=== PATIENT | female | born 1980 | race Hispanic/Latino ===

== ENCOUNTER 2017-09-29 20:28 | Emergency (ER) | payer OTHER ==
--- OUTSIDE RECORDS SUMMARY | 2017-09-29 20:30 | XMS REPORT | Clinical Summary ---
Author Author [facility] Organization [facility] Address Unknown Phone Unavailable Care Team Providers Care Fee Clerk Name Role Phone Aidan Gonzalez MD PCP Allergies No Known Allergies Current Medications No known medications Active Problems Problem Noted Date Bleeding from anus 05/04/2016 Constipation 05/04/2016 Internal hemorrhoids 05/04/2016 Social History Tobacco Use Types Packs/Day Years Used Date Never Smoker Sex Assigned at Date Recorded Not on file Last Filed Vital Signs Not on file Plan of Treatment Health Maintenance Due Date Last Done Comments PAP SMEAR 2000 INFLUENZA VACCINE 01/23/2018 Results Not on fileafter 09/28/2016 Insurance Payer Benefit Subscriber ID Type Phone Address Plan / Group CIG[employer] CIGNA OPEN xxxxxxxxxxx HMO ACCESS/NET WORK
== END 2017-09-29 20:41 | disposition short-term general hospital (02) ==
LOC: ER 20:28
DX: R10.9 Unspecified abdominal pain (principal)